=== PATIENT | female | born 1940 | race Caucasian/White ===

== ENCOUNTER → 2017-09-12 | Outpatient (CLI) | payer MEDICARE, OTHER ==
[~2017-09-12] MED LIST: ANTIVERT25 MG; ASA81BEC; COZAAR 50 MG TA50 M2; FISH OIL 1,001000 M2; NORCO 5-325 TA1 EACH PO; PROZAC10 MG
--- NOTE | 2017-09-12 18:04 | 2DMMODE ---
[place] [address] 2 D/M-MODE ECHOCARDIOGRAM Name: ZOFIA GOMEZ Room: [facility]#: [id number] Admission: 09/12/17 Attend Phys: Hilton Rocha, Discharge: Date of : 40 Date of Service: 09/12/17 1804 Report #: [id number] THIS REPORT FOR: //name// APPROVED REPORT Study performed: 09/12/2017 13:57:45 EXAM: Comprehensive 2D, Doppler, and color-flow Echocardiogram Patient Location: Out-Patient Status: routine BSA: 1.83 HR: 75 bpm BP: 116/79 mmHg Other Information Study Quality: Adequate Indications Palpitations 2D Dimensions LVEF(%): 75.32 (>50%) IVSd: 11.67 (7-11mm) LVOT Diam: 19.96 (18-24mm) LVDd: 48.19 mm PWd: 10.44 (7-11mm) Ascending Ao: 28.25 (22-36mm) LVDs: 26.91 (25-40mm) Aortic Root: 23.63 mm Pablo's LVEF: 75.32 % Volumes Left Atrial Volume (Systole) LA ESV Index: 22.40 mL/m2 Aortic Valve AoV Peak Bharat.: 1.44 m/s AO Peak Gr.: 8.25 mmHg LVOT Max P.75 mmHg AO Mean Gr.: 4.24 mmHg LVOT Mean P.07 mmHg LVOT Max V: 1.09 m/s AO V2 VTI: 28.90 cm LVOT Mean V: 0.65 m/s TAD (VTI): 2.34 cm2 LVOT V1 VTI: 21.66 cm Mitral Valve E/A Ratio: 0.59 MV Decel. Time: 267.28 [place] [address] 2 D/M-MODE ECHOCARDIOGRAM Name: ZOFIA GOMEZ Room: [facility]#: [id number] Admission: 09/12/17 Attend Phys: Hilton Rocha, Discharge: Date of : 40 Date of Service: 09/12/17 1804 Report #: [id number] MV E Max Bharat.: 0.54 m/s MV PHT: 77.51 ms MVA (PHT): 2.84 cm2 TDI E/Lateral E': 7.71 E/Medial E': 4.91 Medial E' Bharat.: 0.11 m/s Lateral E' Bharat.: 0.07 m/s Pulmonary Valve PV Peak Bharat.: 1.37 m/s PV Peak Gr.: 7.50 mmHg Tricuspid Valve TR Peak Gr.: 26.10 mmHg RVSP: 31.10 mmHg Left Ventricle The left ventricle is normal size. There is normal LV segmental wall motion. There is normal left ventricular wall thickness. Left ventricular systolic function is normal. The left ventricular ejection fraction is within the normal range. LVEF is 55-60%. Grade I - abnormal relaxation pattern. Right Ventricle The right ventricle is normal size. The right ventricular systolic function is normal. Atria The left atrium size is normal. The right atrium size is normal. Aortic Valve The aortic valve is normal in structure. No aortic regurgitation is present. There is no aortic valvular stenosis. Mitral Valve The mitral valve is normal in structure. There is no mitral valve regurgitation noted. No evidence of mitral valve stenosis. Tricuspid Valve The tricuspid valve is normal in structure. Mild tricuspid regurgitation. The RVSP is __31 mmHg. Pulmonic Valve Pulmonic valve is not well visualized. There is no [place]mon[place] [address] 2 D/M-MODE ECHOCARDIOGRAM Name: ZOFIA GOMEZ Room: [facility]#: [id number] Admission: 09/12/17 Attend Phys: Hilton Rocha, Discharge: Date of : 40 Date of Service: 09/12/17 1804 Report #: [id number] Great Vessels The aortic root is normal in size. IVC is normal in size and collapses with >50% inspiration Pericardium There is no pericardial effusion. <Conclusion> Left ventricular systolic function is normal. The left ventricular ejection fraction is within the normal range. <ELECTRONICALLY SIGNED> By: Hilton Resendiz MD, [facility] 09/12/171803 03 03 Hilton Resendiz MD, FACC /INF
== END ==
LOC: M.CRD 10:00
DX: I07.1 Rheumatic tricuspid insufficiency (principal); I10 Essential (primary) hypertension; R00.0 Tachycardia, unspecified

== ENCOUNTER → 2017-10-17 | Outpatient (CLI) | payer MEDICARE, OTHER | LOC: M.LAB 03:58 | DX: Z01.812 Encounter for preprocedural laboratory examination (principal); I10 Essential (primary) hypertension ==

== ENCOUNTER → 2020-07-29 | Outpatient (CLI) | payer MEDICARE, OTHER | LOC: M.RAD 14:04 | PROVIDERS: ATTEND Internal Medicine | DX: M25.551 Pain in right hip (principal); M25.561 Pain in right knee; G89.29 Other chronic pain ==